=== PATIENT | female | born 1970 | race Caucasian/White ===

== ENCOUNTER 2016-11-24 01:51 | Observation (INO) | payer BC ==
[~2016-11-24 01:51] MED LIST: ADVIL200 M1 PO; CALCIUM 600 +1 EA21 PO; CALCIUM600 M1 PO; CRESTOR10 MG/TAB PO; DARVOCET-N 1001 EACH PO; DIOVAN HCT 160/1 TA PO; DIOVAN HCT 1601 EACH PO; FARXIGA10 M1 PO; FISH OIL 11000 MG/CA PO; ICAPS TABLET1 EACH PO; JENTADUETO PO; LIBRAX CAPSULE1 EACH PO; LIBRAX1 CAP PO; MOTRIN800 MG PO; TRULICITY0.75 MG/0. SC; TYLENOL325 M2 PO; VITAMIN D31000 UNI3 PO; [UNRECOGNIZED DRUG - OTHER] PO
[2016-11-24 02:36] LABS: BASO % 0.3 % (0-2); EOS % 0.3 % (0-7); HCT-HEMATOCRIT 43.9 % (34.0-49.0); HGB-HEMOGLOBIN 15.4 gm/dl (12.0-15.5); IMMATURE GRANULOCYTES ABSOLUTE 0.02 tho/cmm (0-0.03); IMMATURE GRANULOCYTES PERCENT 0.3 % (0-0.3); LYMPH ABSOLUTE COUNT 1.1 tho/cmm (0.8-4.5); MCH (MEAN CORPUSCULAR HGB) 30.9 pg (28.0-32.0); MCHC MEAN CORPUSCULAR HGB CONC 35.1 % (32.0-36.0); MCV (MEAN CELL VOLUME) 88.2 fl (82.0-96.0); MEAN PLATELET VOLUME 11.5 cmc (9.4-12.4); MONO % 4.7 % (0-12); MONOCYTE ABSOLUTE COUNT 0.3 tho/cmm (0.0-1.2); NEUTROPHIL ABSOLUTE COUNT 5.1 tho/cmm (1.6-8.0); NEUTROPHIL-AUTOMATED 5.1 tho/cmm (1.6-8.0); NEUTROPHILS % 77.4 % (40-80); PLATELET COUNT 205 tho/cmm (150-450); RED BLOOD COUNT 4.98 mil/cmm (4.00-5.20); RED CELL DISTRIBUTION WIDTH 12.6 % (12.4-16.4); WHITE BLOOD COUNT 6.6 tho/cmm (4.0-10.0)
[2016-11-24] MEDS ORDERED: PRILOSEC OTC20 M1 PO (02:43)
[2016-11-24] MEDS ORDERED: GLUCOPHAGE500 M3 PO (02:44)
[2016-11-24] MEDS ORDERED: FLOVENT HFA1 PUF2 INH (02:44)
[2016-11-24] MEDS ORDERED: TAMOXIFEN CITRA20 M1 PO (02:44)
[2016-11-24 02:45] LABS: ANION GAP 16 mmol/L (0-20); BLOOD UREA NITROGEN 15 mg/dl (6-24); CALCIUM 9.4 mg/dl (8.5-10.5); CARBON DIOXIDE-VENOUS 22 mmol/L (22-32); CHLORIDE 107 mmol/l (96-110); CREATININE 0.76 mg/dl (0.50-1.10); GLUCOSE 190 mg/dL (70-110); POTASSIUM 3.8 mmol/L (3.7-5.1); SODIUM 141 mmol/L (135-145); eGFR VALUE FOR BLACK >90 mL/Min
[2016-11-24] MEDS ORDERED: ASPIRIN EC81 MG PO (02:45)
[2016-11-24 09:40] LABS: URINE BILIRUBIN NEGATIVE (NEG); URINE BLOOD NEGATIVE (NEG); URINE GLUCOSE (UA) LARGE (NEG); URINE KETONE NEGATIVE (NEG); URINE LEUKOCYTE ESTERASE NEGATIVE (NEG); URINE NITRITE NEGATIVE (NEG); URINE PROTEIN NEGATIVE (NEG); URINE SPECIFIC GRAVITY 1.015 (1.003-1.030)
[2016-11-24 09:43] LABS: URINE APPEARANCE CLEAR; URINE COLOR YELLOW
[2016-11-24 09:51] LABS: URINE RBC RARE /[HPF] (0-5); URINE WBC 0-1 /[HPF] (0-5)
[2016-11-24] MEDS ORDERED: MECLIZINE HCL12.5 M3 PO (13:49)
== END 2016-11-24 15:05 ==
LOC: EDMED 01:51 → EMR2 05:29 → CAR1 05:50
PROVIDERS: Emergency Medicine; Registered Nurse; ADMIT Hospitalist
DX: R42 Dizziness and giddiness (principal); R11.2 Nausea with vomiting, unspecified; E11.9 Type 2 diabetes mellitus without complications; I10 Essential (primary) hypertension; E78.5 Hyperlipidemia, unspecified; Z79.82 Long term (current) use of aspirin; Z79.84 Long term (current) use of oral hypoglycemic drugs; Z79.899 Other long term (current) drug therapy; Z88.1 Allergy status to other antibiotic agents; Z91.030 Bee allergy status; Z91.048 Other nonmedicinal substance allergy status; Z85.3 Personal history of malignant neoplasm of breast; Z90.49 Acquired absence of other specified parts of digestive tract; Z90.710 Acquired absence of both cervix and uterus; Z90.89 Acquired absence of other organs; Z98.1 Arthrodesis status; Z98.890 Other specified postprocedural states
CPT/HCPCS: G0378; G8978-GP-CI; G8979-GP-CH; G8980-GP-CI; G8987-GO-CI; G8988-GO-CI; G8989-GO-CI; J2060; J2405; J7030

== ENCOUNTER 2016-11-26 07:54 | Observation (INO) | payer BC ==
[~2016-11-26 07:54] MED LIST changes: +ASPIRIN EC81 MG PO; +FLOVENT HFA1 PUF2 INH; +GLUCOPHAGE500 M3 PO; +MECLIZINE HCL12.5 M3 PO; +PRILOSEC OTC20 M1 PO; +TAMOXIFEN CITRA20 M1 PO
[2016-11-26 09:20] LABS: BASO % 0.3 % (0-2); EOS % 0.8 % (0-7); EOSINOPHIL ABSOLUTE COUNT 0.1 tho/cmm (0.0-0.7); HCT-HEMATOCRIT 44.4 % (34.0-49.0); HGB-HEMOGLOBIN 15.4 gm/dl (12.0-15.5); IMMATURE GRANULOCYTES ABSOLUTE 0.01 tho/cmm (0-0.03); IMMATURE GRANULOCYTES PERCENT 0.2 % (0-0.3); LYMPH % 20.2 % (20-45); LYMPH ABSOLUTE COUNT 1.3 tho/cmm (0.8-4.5); MCH (MEAN CORPUSCULAR HGB) 30.7 pg (28.0-32.0); MCHC MEAN CORPUSCULAR HGB CONC 34.7 % (32.0-36.0); MCV (MEAN CELL VOLUME) 88.6 fl (82.0-96.0); MEAN PLATELET VOLUME 11.1 cmc (9.4-12.4); MONOCYTE ABSOLUTE COUNT 0.4 tho/cmm (0.0-1.2); NEUTROPHIL ABSOLUTE COUNT 4.5 tho/cmm (1.6-8.0); NEUTROPHIL-AUTOMATED 4.5 tho/cmm (1.6-8.0); NEUTROPHILS % 71.5 % (40-80); PLATELET COUNT 200 tho/cmm (150-450); RED BLOOD COUNT 5.01 mil/cmm (4.00-5.20); RED CELL DISTRIBUTION WIDTH 12.6 % (12.4-16.4); WHITE BLOOD COUNT 6.3 tho/cmm (4.0-10.0)
[2016-11-26 09:28] LABS: ANION GAP 15 mmol/L (0-20); BLOOD UREA NITROGEN 13 mg/dl (6-24); CALCIUM 9.3 mg/dl (8.5-10.5); CARBON DIOXIDE-VENOUS 26 mmol/L (22-32); CHLORIDE 104 mmol/l (96-110); CREATININE 0.63 mg/dl (0.50-1.10); GLUCOSE 115 mg/dL (70-110); POTASSIUM 3.8 mmol/L (3.7-5.1); SODIUM 141 mmol/L (135-145); eGFR VALUE FOR BLACK >90 mL/Min
[2016-11-27] MEDS ORDERED: TRANSDERM-SCOP1 EACH TOP (18:36)
== END 2016-11-27 18:55 ==
LOC: EDMED 07:54 → EMR2 14:20 → CAR1 14:23
PROVIDERS: Emergency Medicine; ADMIT Hospitalist
DX: R42 Dizziness and giddiness (principal); R11.2 Nausea with vomiting, unspecified; E11.9 Type 2 diabetes mellitus without complications; G43.909 Migraine, unspecified, not intractable, without status migrainosus; E66.9 Obesity, unspecified; Z68.28 Body mass index [BMI] 28.0-28.9, adult; Z85.3 Personal history of malignant neoplasm of breast; Z90.10 Acquired absence of unspecified breast and nipple
CPT/HCPCS: A9577; G0378; G8978-GP-CJ; G8978-GP-CK; G8979-GP-CJ; G8979-GP-CK; J2405; J2550; J3360; J7050